=== PATIENT | female | born 1970 | race Caucasian/White ===

== ENCOUNTER → 2024-05-04 17:04 | Outpatient (REF) | payer OTHER, SELFPAY | LOC: RAD 17:04 | PROVIDERS: ATTENDING PHYSICIAN Physician Assistant; FAMILY PHYSICIAN Family Medicine | DX: M79.641 Pain in right hand (principal); M79.645 Pain in left finger(s) | CPT/HCPCS: 73130 ==

== ENCOUNTER → 2024-06-17 07:28 | Outpatient (REF) | payer OTHER, SELFPAY | LOC: WDC 07:28 | PROVIDERS: ATTENDING PHYSICIAN Advanced Practice Midwife; FAMILY PHYSICIAN Physician Assistant | DX: Z12.31 Encounter for screening mammogram for malignant neoplasm of breast (principal) | CPT/HCPCS: 77063; 77067 ==

== ENCOUNTER → 2024-12-26 07:16 | Outpatient (REF) | payer OTHER, SELFPAY | LOC: MRI 07:16 | PROVIDERS: ATTENDING PHYSICIAN Orthopaedic Surgery; FAMILY PHYSICIAN Family Medicine | DX: M54.12 Radiculopathy, cervical region (principal) | CPT/HCPCS: 72141 ==

== ENCOUNTER → 2024-12-29 07:31 | Outpatient (REF) | payer OTHER, SELFPAY | LOC: EMG 07:31 | PROVIDERS: ATTENDING PHYSICIAN Orthopaedic Surgery | DX: R20.0 Anesthesia of skin (principal) | CPT/HCPCS: 95886; 95911 ==

== ENCOUNTER 2025-01-24 15:19 | Outpatient (RCR) | payer OTHER, SELFPAY | END 2025-01-24 23:59 | disposition home or self-care (01) | LOC: RPT 15:19 | PROVIDERS: ATTENDING PHYSICIAN Orthopaedic Surgery; FAMILY PHYSICIAN Family Medicine | DX: M54.12 Radiculopathy, cervical region (principal); Z73.6 Limitation of activities due to disability | CPT/HCPCS: 97010; 97110; 97140; 97162 ==

== ENCOUNTER 2025-02-16 15:23 | Outpatient (RCR) | payer OTHER, SELFPAY | END 2025-02-16 23:59 | disposition home or self-care (01) | LOC: RPT 15:23 | PROVIDERS: ATTENDING PHYSICIAN Orthopaedic Surgery; FAMILY PHYSICIAN Family Medicine | DX: M54.12 Radiculopathy, cervical region (principal); Z73.6 Limitation of activities due to disability; M62.81 Muscle weakness (generalized); M25.511 Pain in right shoulder | CPT/HCPCS: 97010; 97110; 97140 ==

== ENCOUNTER → 2025-06-21 07:51 | Outpatient (REF) | payer OTHER, SELFPAY | LOC: WDC 07:51 | PROVIDERS: ATTENDING PHYSICIAN Obstetrics & Gynecology; FAMILY PHYSICIAN Family Medicine | DX: Z12.31 Encounter for screening mammogram for malignant neoplasm of breast (principal) | CPT/HCPCS: 77063; 77067 ==